=== PATIENT | female | born 1990 | race African-American/Black ===

== ENCOUNTER 2017-10-06 15:44 | Emergency (ER) | payer OTHER ==
[2017-10-06 16:00] VITALS: BP 118/68; PULSE 86; TEMP 99.2; BMI 30.5
--- NOTE | 2017-10-06 16:03 | PDOC ---
Rapid Medical Evaluation Time Seen by Provider: 10/06/17 15:57 Medical Evaluation: Allergies Allergy/AdvReac Type Severity Reaction Status Date / Time No Known Allergies Allergy Verified 06/15/14 23:33 10/06/17 15:58 The patient presents with a chief complaint of: Abdominal pain since yesterday. Pt. reports pain across the lower quadrants. Vomited today. Denies diarrhea, constipation. LMP 07/28/17. Reports irregular periods. I have performed a brief in-person evaluation of this patient; Pertinent physical exam findings TTP supra pubic region, LLQ, I have ordered the following: CBC, CMP, Pt/INR, Lipase, HIV testing, GC/ Chlamydia. UA, UC, urine preg The patient will proceed to the ED for further evaluation.
[2017-10-06 18:57] LABS: URINE APPEARANCE SLCLOUDY; URINE BILIRUBIN NEGATIVE (NEGATIVE); URINE BLOOD NEGATIVE (NEGATIVE); URINE COLOR YELLOW; URINE GLUCOSE (UA) NEGATIVE (NEGATIVE); URINE KETONE NEGATIVE (NEGATIVE); URINE NITRITE NEGATIVE (NEGATIVE); URINE PROTEIN NEGATIVE (NEGATIVE); URINE UROBILINOGEN 4.0 E.U/dl mg/dL (0.2-1.0)
[2017-10-06 19:01] LABS: BASO % 0.4 % (0-2.0); EOS % 0.2 % (0-4.5); HEMATOCRIT 38.9 % (32.4-45.2); HEMOGLOBIN 12.5 GM/dL (10.7-15.3); LYMPH % 33.1 % (8-40); MCH 25.8 pg (25.7-33.7); MCHC 32.2 g/dl (32.0-36.0); MEAN CELL VOLUME 80.1 fl (80-96); MEAN PLT VOLUME 11.1 fl (7.5-11.1); MONO % 6.6 % (3.8-10.2); NEUT % 59.7 % (42.8-82.8); PLATELET COUNT 187 K/MM3 (134-434); RBC 4.86 M/mm3 (3.60-5.2); WHITE BLOOD COUNT 7.7 K/mm3 (4.0-10.0)
[2017-10-06 19:23] LABS: URINE LEUK ESTERASE 3+ (NEGATIVE)
[2017-10-06 19:35] LABS: INR 1.03 (0.82-1.09); PROTHROMBIN TIME (PATIENT) 11.6 SEC (9.98-11.88)
[2017-10-06 20:00] LABS: ALK PHOS 84 U/L (45-117); ANION GAP 6 (8-16); BILIRUBIN,TOTAL 0.2 mg/dL (0.2-1.0); BLOOD UREA NITROGEN 11 mg/dL (7-18); CALCIUM 8.8 mg/dL (8.5-10.1); CHLORIDE 106 mmol/L (98-107); CO2 25 mmol/L (21-32); CREATININE 0.8 mg/dL (0.55-1.02); GLUCOSE,RANDOM 86 mg/dL (74-106); POTASSIUM 4.6 mmol/L (3.5-5.1); SGOT/AST 8 U/L (15-37); SGPT/ALT 15 U/L (12-78); SODIUM 137 mmol/L (136-145); TOT PROT 8.4 g/dl (6.4-8.2)
--- NOTE | 2017-10-06 21:27 | PDOC ---
History of Present Illness - General Chief Complaint: Pain Stated Complaint: ABDOMINAL PAIN Time Seen by Provider: 10/06/17 15:57 History Source: Patient Exam Limitations: No Limitations - History of Present Illness Travel History: No Initial Comments: 10/06/17 21:20 This is a 27-year-old woman with past medical history of hypertension who presents to the emergency department with suprapubic pain and pain and tenderness to the right upper quadrant. The pain started approximately 24 hours ago. Patient states the pain in the right upper quadrant has decreased to 2/10 since initial onset. Patient reports one episode of vomiting today. Patient states she gets irregular periods and her last initial period was 07/28/2017. Patient is 3 para 2 states she has an IUD in place. She denies any vaginal discharge or bleeding. She denies any dysuria or hematuria. Patient states she feels urinary urgency. Patient denies fevers, chills, chest pain, shortness of breath, nausea. 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 PMH: Hypertension- stopped taking medication 2 months ago because she ran out PSH: Denies Past History - Past Medical History Allergies/Adverse Reactions: Allergies Allergy/AdvReac Type Severity Reaction Status Date / Time SEAFOOD Allergy Uncoded 10/06/17 16:02 Home Medications: Ambulatory Orders Acetaminophen [Tylenol .Regular Strength -] 650 mg PO Q3H PRN #20 tablet Benzocaine [Americaine 20% [place] -] 1 spray TP PRN PRN #1 spraybtl 06/17/14 Ferrous Sulfate [Feosol] 325 mg PO BID #60 ud 06/17/14 Vitamins (Sjr) - 1 tab PO DAILY #30 tablet 06/17/14 Witch Mami 50% (Tucks) [Tucks Pads -] 1 pad TP PRN PRN #1 pad 06/17/14 Labetalol HCl [Normodyne -] 200 mg PO Q6H #0 tablet 06/19/14 Cephalexin Monohydrate [Keflex -] 500 mg PO BID #20 capsule 10/07/17 95/Iron Fum/Folic/Dha [ + Dha Combo Pack] 1 each PO DAILY #30 combo..pkg 10/07/17 Asthma: No Cancer: No Cardiac Disorders: No COPD: No Diabetes: No HTN: Yes (NO ON MEDS) Seizures: No Thyroid Disease: No - Suicide/Smoking/Psychosocial Hx Smoking History: Never smoked Have you smoked in the past 12 months: No Information on smoking cessation initiated: No Hx Alcohol Use: No Drug/Substance Use Hx: No Substance Use Type: None Hx Substance Use Treatment: No Review of Systems - Review of Systems Able to Perform ROS?: Yes Is the patient limited Bulgarian proficient: No Constitutional: No: Symptoms Reported HEENTM: No: Symptoms Reported Respiratory: No: Symptoms reported Cardiac (ROS): No: Symptoms Reported ABD/GI: Yes: See HPI : Yes: See HPI Musculoskeletal: No: Symptoms Reported Integumentary: No: Symptoms Reported Neurological: No: Symptoms reported *Physical Exam - Vital Signs Last Vital Signs Temp Pulse Resp BP Pulse Ox 99.2 F 86 18 118/68 100 10/06/17 15:58 10/06/17 15:58 10/06/17 15:58 10/06/17 15:58 10/06/17 15:58 - Physical Exam General Appearance: Yes: Appropriately Dressed. No: Apparent Distress HEENT: positive: Normal ENT Inspection Neck: positive: Trachea midline, Supple Respiratory/Chest: positive: Lungs Clear, Normal Breath Sounds. negative: Respiratory Distress, Accessory Muscle Use Cardiovascular: positive: Regular Rhythm, Regular Rate. negative: Edema, Murmur Gastrointestinal/Abdominal: positive: Normal Bowel Sounds, Tender (RUQ. (-) Oconnor's), Soft. negative: Organomegaly Musculoskeletal: positive: Normal Inspection. negative: CVA Tenderness Extremity: positive: Normal Inspection, Normal Range of Motion Integumentary: positive: Normal Color, Dry, Warm Neurologic: positive: Fully Oriented, Alert, Normal Mood/Affect, Normal Response , Motor Strength 5/5 ED Treatment Course - LABORATORY CBC & Chemistry Diagram: 10/06/17 18:50 10/06/17 18:50 - ADDITIONAL ORDERS Additional order review: Laboratory Results 10/06/17 10/06/17 10/06/17 18:50 18:50 18:50 PT with INR 11.60 INR 1.03 Sodium 137 Potassium 4.6 Chloride 106 Carbon Dioxide 25 Anion Gap 6 L BUN 11 Creatinine 0.8 Creat Clearance w eGFR > 60 Random Glucose 86 Calcium 8.8 Total Bilirubin 0.2 D AST 8 L D ALT 15 D Alkaline Phosphatase 84 Total Protein 8.4 H D Albumin 4.0 Lipase 210 Urine Color Urine Appearance Urine pH Ur Specific [place] Urine Protein Urine Glucose (UA) Urine Ketones Urine Blood Urine Nitrite Urine Bilirubin Urine Urobilinogen Ur Leukocyte Esterase Urine HCG, Qual 10/06/17 10/06/17 18:35 18:35 PT with INR INR Sodium Potassium Chloride Carbon Dioxide Anion Gap BUN Creatinine Creat Clearance w eGFR Random Glucose Calcium Total Bilirubin AST ALT Alkaline Phosphatase Total Protein Albumin Lipase Urine Color Yellow Urine Appearance Slcloudy Urine pH 6.0 Ur Specific [place] 1.028 Urine Protein Negative Urine Glucose (UA) Negative Urine Ketones Negative Urine Blood Negative Urine Nitrite Negative Urine Bilirubin Negative Urine Urobilinogen 4.0 e.u/dl H Ur Leukocyte Esterase 3+ H Urine HCG, Qual Positive 10/06/17 18:50 RBC 4.86 D MCV 80.1 MCHC 32.2 RDW 14.0 MPV 11.1 Neutrophils % 59.7 Lymphocytes % 33.1 Monocytes % 6.6 Eosinophils % 0.2 Basophils % 0.4 - RADIOLOGY Radiology Studies Ordered: Category Date Time Status ABDOMEN US -LIMITED [US] Stat Ultrasound 10/06/17 21:17 Ordered TRANSVAGINAL US PREG [US] Stat Ultrasound 10/06/17 21:17 Ordered Medical Decision Making - Medical Decision Making 10/06/17 21:23 A/P: This is a 27-year-old woman with past medical history of hypertension who presents to the emergency department with suprapubic pain and pain and tenderness to the right upper quadrant. The pain started approximately 24 hours ago. Patient states the pain in the right upper quadrant has decreased to 2/10 since initial onset. Patient reports one episode of vomiting today. Patient states she gets irregular periods and her last initial period was 07/28/2017. Patient is 3 para 2 states she has an IUD in place. She denies any vaginal discharge or bleeding. She denies any dysuria or hematuria. Patient states she feels urinary urgency. Patient denies fevers, chills, chest pain, shortness of breath, nausea. Lungs clear to auscultation bilaterally. Respirations even and unlabored. RRR. No murmur, rub or gallop appreciated. Abdomen with tenderness to palpation of the right upper quadrant. No Oconnor's elicited. Mild tenderness to palpation over suprapubic area. Differential diagnosis includes IUP versus ectopic, cholecystitis Given a laboratory testing that has been completed, I'll perform a right upper quadrant ultrasound to rule out cholecystitis. I will obtain a transvaginal ultrasound to evaluate for IUP versus ectopic. I'll add on a serum beta-hCG. Urinalysis reveals elevated urobilinogen and positive for leuk esterase. I'll treat the patient for UTI. 10/07/17 00:46 Ultrasound of the abdomen read by Allyson: contracted gallbladder with no evidence of cholelithiasis or acute cholecystitis.1. Prominent gallbladder wall measuring up to 5 mm may be subtle thickening secondary to under distention. 2. prominent common bile duct measuring 5 mm in diameter may be secondary to technical limitation no intrahepatic biliary ductal dilation. Please correlate clinically with serum markers. 3. hepatic steatosis. Transvaginal ultrasound with single IUP. Fundus discussed with patient will follow-up with her story analyst next week for further evaluation. I will treat the patient's urinary tract infection with Keflex 500 mg twice a day for 10 days. Over scrub the patient vitamins until she is able to follow-up with her story analyst. *DC/Admit/Observation/Transfer Diagnosis at time of Disposition: First trimester UTI (urinary tract infection) during Qualifiers: Trimester: first trimester Qualified Code(s): O23.41 - Unspecified infection of urinary tract in , first trimester - Discharge Dispostion Disposition: HOME Condition at time of disposition: Stable Admit: No - Prescriptions Prescriptions: Cephalexin Monohydrate [Keflex -] 500 mg PO BID #20 capsule 95/Iron Fum/Folic/Dha [ + Dha Combo Pack] 1 each PO DAILY #30 combo..pkg - Referrals Referrals: Ajay Jung [Primary Care Provider] - - Patient Instructions Additional Instructions: If you are experiencing any pain, Tylenol is the only safe medication to take during . Avoid medications such as Motrin, ibuprofen, Advil, Naprosyn, Aleve during . Make an appointment with your story analyst for visit. Take Keflex 500 mg twice a day for the next 10 days. Take all the medication. Take vitamins once a day until you can follow-up with your story analyst. Return to emergency department for severe abdominal pain, bleeding, vaginal discharge, or any other concerns. Thank you very much for choosing us to provide your emergent healthcare needs. - Post Discharge Activity
[2017-10-07 00:09] LABS: EPI CELLS FEW /HPF (FEW); URINE BACTERIA RARE /hpf (NONE SEEN); URINE MUCUS FEW
== END 2017-10-07 01:15 | disposition home or self-care (01) ==
LOC: JER 15:44
DX: O26.891 Other specified pregnancy related conditions, first trimester (principal); O23.31 Infections of other parts of urinary tract in pregnancy, first trimester; Z3A.01 Less than 8 weeks gestation of pregnancy
CPT/HCPCS: 36415; 76705-TC; 76817-TC; 80053; 81003; 81015; 83690; 84702; 84703; 85025; 85610; 86593; 87086; 87389; 87491; 87591; 99282-25

== ENCOUNTER 2018-08-24 16:56 | Emergency (ER) | payer OTHER ==
[2018-08-24 17:01] VITALS: BP 141/75; PULSE 82; TEMP 98.2; BMI 37.6
--- NOTE | 2018-08-24 17:07 | PDOC ---
Rapid Medical Evaluation Chief Complaint: Chest Pain Time Seen by Provider: 08/24/18 17:05 Medical Evaluation: Allergies Allergy/AdvReac Type Severity Reaction Status Date / Time SEAFOOD Allergy Uncoded 08/24/18 16:57 Vital Signs Temp Pulse Resp BP Pulse Ox 98.2 F 82 16 141/75 100 08/24/18 16:57 08/24/18 16:57 08/24/18 16:57 08/24/18 16:57 08/24/18 16:57 08/24/18 17:10 I have performed a brief in person evaluation of this patient. The patient presents with chief complaint of : chest pain radiating down abdomen and lower back x 1.5wks. had 2 episodes of vomiting few days ago. Denies fever, chills, palpitations, SOB, dizziness Pertinent PE findings: A&O x 3. heart RRR. lungs CTAB. EKG shows NSR I have ordered the following: CBC, cmb, hepatic penal. cardiac profile The patient will proceed to the ER for further evaluation. Discharge Disposition - Diagnosis Chest discomfort - Referrals - Patient Instructions - Post Discharge Activity
--- NOTE | 2018-08-24 18:08 | PDOC ---
Attending Attestation - HPI HPI: 08/24/18 19:55 The patient is a 28 year old female with a significant past medical history of HTN presents to the ED for abdominal pain for over a week. Patient reports suprapubic intermittent cramping pain radiating to her LLQ and RLQ, no alleviating or aggravating factors. She also reports two episodes of nonbloody villa colored vomiting on tuesday (08/21). Patient also complains of sharp intermittent substernal chest pain lasting 3 minutes at a time, occurring 4 times a day for one and a half week. She also complained of lower back pain. Denies fever, chills, dysuria, hematuria, flank pain, diarrhea, constipation, blood in stool, cough, shortness of breath, vaginal bleeding, vaginal discharge. LMP: 07/06/18 Social hx: Patient is sexually active with one partner. Denies condom use, denies OCP use. - Physicial Exam PE: 08/24/18 19:55 Constitutional: Awake, alert, oriented. No acute distress. Head: Normocephalic. Atraumatic Eyes: PERRL. EOMI. Conjunctivae are not pale. ENT: Mucous membranes are moist and intact. Posterior pharynx without exudates or erythema. Uvula midline. Neck: Supple. Full ROM. No lymphadenopathy. Cardiovascular: Regular rate. Regular rhythm. S1, S2 regular. Distal pulses are 2+ and symmetric. Pulmonary/Chest: No evidence of respiratory distress. Clear to auscultation bilaterally No wheezing, rales or rhonchi. Abdominal: Soft and non-distended. There is no tenderness. No rebound, guarding or rigidity. No organomegaly. No palpable masses. Good bowel sounds. Pelvic: + Diarrhea during pelvic exam. Brownish greenish discharge. Mild superpubic tenderness. No adnexal tenderness. No CMT. Back: No CVA tenderness. Musculoskeletal: No edema. No cyanosis. No clubbing. Full range of motion in all extremities. Nocalf tenderness. Radial/pedal pulses are intact and 2+ bilaterally Skin: Skin is warm and dry. No petechiae. No purpura. Neurological: Alert and oriented to person, place, and time. Cranial nerves II -XII are grossly intact. Normal speech. Strength is grossly symmetric. No sensory deficits. Psychiatric: Good eye contact. Normal interaction, affect and behavior. <Agrawal,Andrys - Last Filed: 08/24/18 19:55> - Resident Resident Name: Shanice Millard - ED Attending Attestation I have performed the following: I have examined & evaluated the patient, The case was reviewed & discussed with the resident, I agree w/resident's findings & plan, Exceptions are as noted - Medical Decision Making 08/24/18 18:08 I, Dr. Penelope Reyna, , attest that this document has been prepared under my direction and personally reviewed by me in its entirety. I further attest, that it accurately reflects all work, treatment, procedures and medical decision -making performed by me. 08/24/18 19:59 a/p: 28yo at unknown weeks gestation with lower pelvic cramping, small amount of discharge, and atypical chest pain -will send labs, beta hcg, ua, urine for gc/chl -will obtain tvus -most likely also with UTI -will monitor and reassess -pt is nontoxic in appearance 08/24/18 20:06 pt with +preg tvus ordered 08/24/18 21:41 beta >3000 pending ultrasound O+ on type and screen <Penelope Reyna - Last Filed: 08/24/18 21:43> Heart Score/ECG Review - ECG Intrepretation Comment:: 08/24/18 20:06 sinus at 70, nl axis, nl interval, no acute st/t wave findings <Penelope Reyna - Last Filed: 08/24/18 21:43> Attestations - Attestations 08/24/18 19:55 Documentation prepared by Gordon Agrawal, acting as medical records custodian for Penelope Reyna DO <Gordon Agrawal - Last Filed: 08/24/18 19:55>
--- NOTE | 2018-08-24 18:19 | PDOC ---
History of Present Illness - General Chief Complaint: Chest Pain Stated Complaint: CHEST PAIN Time Seen by Provider: 08/24/18 17:05 History Source: Patient Exam Limitations: No Limitations - History of Present Illness Initial Comments: 08/24/18 18:14 28 year old female with PMH HTN presented to ED for abdominal painx1.5 weeks. She stated her pain is located to her suprapubic area, intermittent, crampy, radiating to her LLQ and RLQ, no alleviating or aggravating factors. She stated her LMP was 07/06/18, she admitted to being sexually active with one partner, denied condom use, denied OCP use. She stated she vomited twice tuesday, villa colored, denied blood. She denied fever, chills, dysuria, hematuria, flank pain , diarrhea, constipation, blood in stool, cough, shortness of breath, vaginal bleeding, vaginal discharge. She admitted to intermittent chest pain x1.5 weeks , sharp, lasting 3 minutes at a time, occurring 4 times a day, located substernally, no alleviating or aggravating factors. She also complained of low back pain. Allergies: NKDA Past History - Past Medical History Allergies/Adverse Reactions: Allergies Allergy/AdvReac Type Severity Reaction Status Date / Time Fish Containing Products Allergy Verified 08/24/18 18:29 SEAFOOD Allergy Uncoded 08/24/18 16:57 Home Medications: Ambulatory Orders Acetaminophen [Tylenol -] 500 mg PO Q4H PRN 08/24/18 Cephalexin [Keflex] 500 mg PO BID #14 capsule 08/24/18 Asthma: No Cancer: No Cardiac Disorders: No COPD: No Diabetes: No HTN: Yes (NO ON MEDS) Seizures: No Thyroid Disease: No - Immunization History Immunization Up to Date: Yes - Suicide/Smoking/Psychosocial Hx Smoking History: Never smoked Have you smoked in the past 12 months: No Information on smoking cessation initiated: No Hx Alcohol Use: No Drug/Substance Use Hx: No Substance Use Type: None Hx Substance Use Treatment: No Review of Systems - Review of Systems Able to Perform ROS?: Yes Comments:: 08/24/18 18:19 General: denied fever, chills, generalized weakness. HEENT: denied sore throat, rhinorrhea, ear pain. Heart: admitted to chest pain. denied palpitations, shortness of breath, lower extremity swelling. Respiratory: denied shortness of breath, cough. Abdomen: admitted to abdominal pain, nausea, vomiting. denied diarrhea. : denied vaginal bleeding, vaginal discharge, dysuria, increased urinary frequency, hematuria. Back: admitted to back pain. Musculoskeletal: denied joint pain, muscle pain. Neurological: denied headache, dizziness, numbness, tingling. Skin: denied rash, laceration, abrasion. *Physical Exam - Vital Signs Last Vital Signs Temp Pulse Resp BP Pulse Ox 98.2 F 82 16 141/75 100 08/24/18 16:57 08/24/18 16:57 08/24/18 16:57 08/24/18 16:57 08/24/18 16:57 - Physical Exam Comments: 08/24/18 18:19 Constitutional: well developed, well nourished, appearing stated age. HEENT: head NAAT. EOMI. PEERLA. Neck: supple. full ROM. Heart: regular rhythm. no murmurs. Lungs: clear to auscultation bilaterally. Abdomen: soft, flat, tenderness to suprapubic area with palpation. no guarding. no rebound. Extremities: peripheral pulses intact and equal. no lower extremity edema. Back: no CVA tenderness bilaterally. Neurological: CN2-12 grossly intact. moves all four extremities. Psych: awake, alert, orientedx3, follows commands, answers questions appropriately. 08/24/18 19:50 Pelvic: normal external genitalia. brown stool noted to perineum. cervical os closed. no blood in vaginal vault. no CMT. no adnexal tenderness. Moderate Sedation - Procedure Monitoring Vital Signs: Procedure Monitoring Vital Signs Temperature 98.2 F 08/24/18 16:57 Pulse Rate 82 08/24/18 16:57 Respiratory Rate 16 08/24/18 16:57 Blood Pressure 141/75 08/24/18 16:57 O2 Sat by Pulse Oximetry (%) 100 08/24/18 16:57 ED Treatment Course - LABORATORY CBC & Chemistry Diagram: 08/24/18 18:20 08/24/18 19:13 Medical Decision Making - Medical Decision Making 08/24/18 18:21 28 year old female with PMH HTN presented to ED for suprapubic cramping and intermittent sharp chest pain associated with low back pain. Initial Vital Signs Temp Pulse Resp BP Pulse Ox 98.2 F 82 16 141/75 100 08/24/18 16:57 08/24/18 16:57 08/24/18 16:57 08/24/18 16:57 08/24/18 16:57 Afebrile. No tachycardia. No tachypnea. Mild hypertension. No hypoxia on room air. EKG: rate 70, regular rhythm, normal axis, normal intervals, no acute ST changes. CBC WBC 8.9 K/mm3 (4.0-10.0) 08/24/18 18:20 RBC 4.47 M/mm3 (3.60-5.2) 08/24/18 18:20 Hgb 12.1 GM/dL (10.7-15.3) 08/24/18 18:20 Hct 35.9 % (32.4-45.2) 08/24/18 18:20 MCV 80.3 fl (80-96) 08/24/18 18:20 MCH 27.1 pg (25.7-33.7) 08/24/18 18:20 MCHC 33.8 g/dl (32.0-36.0) 08/24/18 18:20 RDW 14.3 % (11.6-15.6) 08/24/18 18:20 Plt Count 178 K/MM3 (134-434) 08/24/18 18:20 MPV 11.8 fl (7.5-11.1) H 08/24/18 18:20 Absolute Neuts (auto) 5.0 K/mm3 (1.5-8.0) 08/24/18 18:20 Neutrophils % 56.5 % (42.8-82.8) 08/24/18 18:20 Lymphocytes % 35.6 % (8-40) 08/24/18 18:20 Monocytes % 6.8 % (3.8-10.2) 08/24/18 18:20 Eosinophils % 0.5 % (0-4.5) D 08/24/18 18:20 Basophils % 0.6 % (0-2.0) 08/24/18 18:20 Nucleated RBC % 0 % (0-0) 08/24/18 18:20 No leukocytosis. No anemia. Urine Test Results Urine Color Dkyellow 08/24/18 18:30 Urine Appearance Cloudy 08/24/18 18:30 Urine pH 6.0 (5.0-8.0) 08/24/18 18:30 Ur Specific [place] 1.030 (1.010-1.035) 08/24/18 18:30 Urine Protein 1+ (NEGATIVE) H 08/24/18 18:30 Urine Glucose (UA) Negative (NEGATIVE) 08/24/18 18:30 Urine Ketones 1+ (NEGATIVE) H 08/24/18 18:30 Urine Blood Negative (NEGATIVE) 08/24/18 18:30 Urine Nitrite Negative (NEGATIVE) 08/24/18 18:30 Urine Bilirubin Negative (<2.0 mg/dL) 08/24/18 18:30 Ur Leukocyte Esterase 3+ (NEGATIVE) H 08/24/18 18:30 Ur Epithelial Cells Many /HPF (FEW) 08/24/18 18:30 Urine Mucus Many 08/24/18 18:30 WBC>5 Evidence of UTI. Urine test positive. - Pending beta quant, T/S - Pending TVUS - Macrobid ordered 08/24/18 20:51 CMP Sodium 137 mmol/L (136-145) 08/24/18 19:13 Potassium 4.0 mmol/L (3.5-5.1) 08/24/18 19:13 Chloride 108 mmol/L (98-107) H 08/24/18 19:13 Carbon Dioxide 19 mmol/L (21-32) L 08/24/18 19:13 Anion Gap 11 MMOL/L (8-16) 08/24/18 19:13 BUN 9 mg/dL (7-18) 08/24/18 19:13 Creatinine 0.8 mg/dL (0.55-1.3) 08/24/18 19:13 Creat Clearance w eGFR > 60 (>60) 08/24/18 19:13 Random Glucose 77 mg/dL (74-106) 08/24/18 19:13 Calcium 8.4 mg/dL (8.5-10.1) L 08/24/18 19:13 Total Bilirubin 0.4 mg/dL (0.2-1) 08/24/18 19:13 AST 11 U/L (15-37) L 08/24/18 19:13 ALT 19 U/L (13-61) 08/24/18 19:13 Alkaline Phosphatase 69 U/L (45-117) 08/24/18 19:13 Creatine Kinase 227 IU/L (26-192) H 08/24/18 19:13 Creatine Kinase Index 0.4 % (0.0-5.0) 08/24/18 19:13 CK-MB (CK-2) < 1.0 ng/mL (0.5-3.6) 08/24/18 19:13 Troponin I < 0.02 ng/ml (0.00-0.05) 08/24/18 19:13 Total Protein 7.6 g/dl (6.4-8.2) 08/24/18 19:13 Albumin 3.8 g/dl (3.4-5.0) 08/24/18 19:13 Total Amylase 56 U/L (25-115) 08/24/18 19:13 Lipase 139 U/L (73-393) 08/24/18 19:13 Beta HCG, Quant 3743.7 mIU/ml 08/24/18 19:13 No electrolyte abnormalities. No DEREK. No LFT abnormalities. Normal lipase. Chest pain unlikely to be cardiac in origin, normal EKG, normal troponin, normal CKMB, normal vital signs. Pt has asymptomatic urinary tract infection in the setting of , will treat. 08/24/18 21:45 Blood type: O+ 08/24/18 21:59 TVUS report: intrauterine gestational sac is seen containing yolk sac, no embryonic pole. approximate gestational age 5 weeks 1 day. Pt informed to return to ED in 48 hours for beta repeat. Pt infomed to follow up with her OB by Tuesday. Pt to be discharged with Keflex prescription for UTI. *DC/Admit/Observation/Transfer Diagnosis at time of Disposition: Chest discomfort, - Discharge Dispostion Disposition: HOME Condition at time of disposition: Stable Decision to Admit order: No - Prescriptions Prescriptions: Cephalexin [Keflex] 500 mg PO BID #14 capsule - Referrals Referrals: Aissatou Dahl MD [Staff Physician] - - Patient Instructions Additional Instructions: You were seen today for abdominal pain and chest pain. Your lab work indicated that you are and have a urinary tract infection. I have sent a prescription to your pharmacy for an antibiotic, take as advised on label. Do not miss any doses. You will be called to make an appointment with a primary care doctor, make an appointment for as soon as available. Follow up with your OBGYN in the next 2-3 days, call their office tomorrow morning and make an appointment for the soonest available. Take vitamins over the counter. Take Tylenol over the counter for your pain. No heavy lifting or vaginal penetration until you are seen and evaluated by your OBGYN. Return to the Emergency Department for vaginal bleeding, increasing pain, chest pain, shortness of breath, palpitations, lightheadedness like you may pass out, or any other new, worsening or concerning symptoms. - Post Discharge Activity
[2018-08-24] MEDS ORDERED: MAG HYDROX/AL HYDROX/SIMETH 30 ML UNIT-DOSE CUP PO ONE (18:30)
[2018-08-24] MEDS ORDERED: ACETAMINOPHEN 325 MG TABLET (FP) PO ONE (18:30)
[2018-08-24 18:45] LABS: HCG,QUALITATIVE URINE Positive
[2018-08-24] MEDS ORDERED: MAG HYDROX/AL HYDROX/SIMETH 30 ML UNIT-DOSE CUP ONE (18:45)
[2018-08-24] MEDS ORDERED: ACETAMINOPHEN 325 MG TABLET (FP) ONE (18:45)
[2018-08-24 18:47] LABS: BASO % 0.6 % (0-2.0); EOS % 0.5 % (0-4.5); HEMATOCRIT 35.9 % (32.4-45.2); HEMOGLOBIN 12.1 GM/dL (10.7-15.3); LYMPH % 35.6 % (8-40); MCH 27.1 pg (25.7-33.7); MCHC 33.8 g/dl (32.0-36.0); MEAN CELL VOLUME 80.3 fl (80-96); MEAN PLT VOLUME 11.8 fl (7.5-11.1); MONO % 6.8 % (3.8-10.2); NEUT % 56.5 % (42.8-82.8); PLATELET COUNT 178 K/MM3 (134-434); RBC 4.47 M/mm3 (3.60-5.2); RDW 14.3 % (11.6-15.6); WHITE BLOOD COUNT 8.9 K/mm3 (4.0-10.0)
[2018-08-24 18:48] LABS: URINE APPEARANCE CLOUDY; URINE BILIRUBIN NEGATIVE (<2.0 mg/dL); URINE COLOR DKYELLOW; URINE GLUCOSE (UA) NEGATIVE (NEGATIVE); URINE KETONE 1+ (NEGATIVE); URINE LEUK ESTERASE 3+ (NEGATIVE); URINE NITRITE NEGATIVE (NEGATIVE); URINE PROTEIN 1+ (NEGATIVE); URINE UROBILINOGEN 4.0 E.U/dl mg/dL (0.2-1.0)
[2018-08-24 19:03] LABS: EPI CELLS MANY /HPF (FEW); URINE MUCUS MANY
[2018-08-24] MEDS ORDERED: NITROFURANTOIN MACROCRYSTAL 50 MG CAPSULE (FP) PO SCH (19:30)
[2018-08-24 20:30] LABS: ALBUMIN 3.8 g/dl (3.4-5.0); ALK PHOS 69 U/L (45-117); AMYLASE 56 U/L (25-115); ANION GAP 11 MMOL/L (8-16); BILIRUBIN,TOTAL 0.4 mg/dL (0.2-1); BLOOD UREA NITROGEN 9 mg/dL (7-18); CALCIUM 8.4 mg/dL (8.5-10.1); CHLORIDE 108 mmol/L (98-107); CO2 19 mmol/L (21-32); CREATININE 0.8 mg/dL (0.55-1.3); GLUCOSE,RANDOM 77 mg/dL (74-106); LIPASE 139 U/L (73-393); SGOT/AST 11 U/L (15-37); SGPT/ALT 19 U/L (13-61); SODIUM 137 mmol/L (136-145); TOT PROT 7.6 g/dl (6.4-8.2)
[2018-08-24] MEDS ORDERED: NITROFURANTOIN MACROCRYSTAL 50 MG CAPSULE (FP) ONE (21:17)
--- NOTE | 2018-08-26 17:25 | EKG ---
Test Reason : Blood Pressure : / mmHG Vent. Rate : 070 BPM Atrial Rate : 070 BPM P-R Int : 152 ms QRS Dur : 092 ms QT Int : 388 ms P-R-T Axes : 014 -10 031 degrees QTc Int : 419 ms NORMAL SINUS RHYTHM NORMAL ECG WHEN COMPARED WITH ECG OF 16-AUG-2011 08:53, NO SIGNIFICANT CHANGE WAS FOUND Confirmed by MD TIFF, MIGDALIA ([id number]) on 08/26/2018 5:25:13 PM Referred By: Confirmed By:MIGDALIA MATTHEW MD
== END 2018-08-24 22:34 | disposition home or self-care (01) ==
LOC: JER 16:56
DX: O23.31 Infections of other parts of urinary tract in pregnancy, first trimester (principal); O16.5 Unspecified maternal hypertension, complicating the puerperium; Z3A.01 Less than 8 weeks gestation of pregnancy
CPT/HCPCS: 36415; 76817-TC; 80053; 81003; 81015; 82150; 82550; 82553; 83690; 84484; 84702; 84703; 85025; 86850; 86900; 86901; 87491; 87591; 93005; 93010; 99283-25

== ENCOUNTER 2018-08-26 12:40 | Emergency (ER) | payer OTHER ==
[2018-08-26 12:46] VITALS: BP 122/71; PULSE 94; TEMP 98.7; BMI 37.6
--- NOTE | 2018-08-26 13:07 | PDOC ---
History of Present Illness - General Chief Complaint: Revisit, Lab Variance Stated Complaint: FOLLOW UP/ULTRASOUND Time Seen by Provider: 08/26/18 13:06 History Source: Patient Exam Limitations: No Limitations - History of Present Illness Travel History: No Initial Comments: 08/26/18 13:22 28 year old female , 5 weeks presents to ed for repeat bhcg. Patient has history of gestation HTN, denies spotting or cramping today. Timing/Duration: reports: other (2 days ago) Quality: reports: mild Abdominal Pain Onset Location: reports: suprapubic Pain Radiation: reports: no radiation Activities at Onset: reports: no specific activity Treatment Prior to Arrive: improves with: other (rest) Aggravating Factors: improves with: None Alleviating Factors: improves with: None Past History - Travel Traveled outside of the country in the last 30 days: No - Past Medical History Allergies/Adverse Reactions: Allergies Allergy/AdvReac Type Severity Reaction Status Date / Time Fish Containing Products Allergy Verified 08/26/18 12:44 SEAFOOD Allergy Uncoded 08/26/18 12:44 Home Medications: Ambulatory Orders NK [No Known Home Medication] 08/26/18 Asthma: No Cancer: No Cardiac Disorders: No COPD: No Diabetes: No HTN: Yes (NO ON MEDS) Seizures: No Thyroid Disease: No - Immunization History Immunization Up to Date: Yes - Suicide/Smoking/Psychosocial Hx Smoking History: Never smoked Have you smoked in the past 12 months: No Hx Alcohol Use: No Drug/Substance Use Hx: No Substance Use Type: None Hx Substance Use Treatment: No Review of Systems - Review of Systems Able to Perform ROS?: Yes Is the patient limited Japanese proficient: No Constitutional: No: Chills, Fever, Weakness HEENTM: No: Cataracts, Ear Discharge, Nose Congestion, Tinnitus, Throat Pain, Mouth Pain, Difficulty Swallowing Respiratory: Yes: Cough. No: Shortness of Breath, Wheezing, Productive cough Cardiac (ROS): No: Chest Pain, Lightheadedness ABD/GI: Yes: Nausea, Abdominal cramping Musculoskeletal: No: Back Pain, Muscle Weakness Integumentary: No: Bruising, Dryness, Erythema Neurological: No: Headache, Numbness, Weakness, Dizziness Psychiatric: No: Stressors *Physical Exam - Vital Signs Last Vital Signs Temp Pulse Resp BP Pulse Ox 98.7 F 94 H 17 122/71 98 08/26/18 12:41 08/26/18 12:41 08/26/18 12:41 08/26/18 12:41 08/26/18 12:41 - Physical Exam General Appearance: Yes: Nourished, Appropriately Dressed. No: Apparent Distress HEENT: positive: T[place], TMs Normal, Pharynx Normal Neck: positive: Supple. negative: Lymphadenopathy (R), Lymphadenopathy (L) Respiratory/Chest: positive: Lungs Clear, Normal Breath Sounds Cardiovascular: positive: Regular Rhythm, Regular Rate, S1, S2 Musculoskeletal: negative: CVA Tenderness Moderate Sedation - Procedure Monitoring Vital Signs: Procedure Monitoring Vital Signs Temperature 98.7 F 08/26/18 12:41 Pulse Rate 94 H 08/26/18 12:41 Respiratory Rate 17 08/26/18 12:41 Blood Pressure 122/71 08/26/18 12:41 O2 Sat by Pulse Oximetry (%) 98 08/26/18 12:41 Medical Decision Making - Medical Decision Making 08/26/18 13:32 28 year old female , 5 weeks here for repeat bhcg, complaining of cramping but no vaginal bleed. 08/26/18 14:14 bhcg 6303.5 and 08/24/18 3743.5 pt d/c and instructed to schedule appointment and return for bleeding and worsening of pain *DC/Admit/Observation/Transfer Diagnosis at time of Disposition: Qualifiers: Weeks of gestation: less than 8 weeks Qualified Code(s): Z3A.01 - Less than 8 weeks gestation of - Discharge Dispostion Disposition: HOME Condition at time of disposition: Good Decision to Admit order: No - Referrals Referrals: Ginger Chaudhry MD [Staff Physician] - - Patient Instructions Printed Discharge Instructions: Ultrasound Exams During , Medications and Additional Instructions: Please schedule appointments start taking vitamins Return to ed for bleeding and worsening of pain - Post Discharge Activity Forms/Work/School Notes: Back to Work
== END 2018-08-26 14:21 | disposition home or self-care (01) ==
LOC: JER 12:40 → JERFT 12:40
DX: O26.891 Other specified pregnancy related conditions, first trimester (principal); Z32.01 Encounter for pregnancy test, result positive; Z3A.01 Less than 8 weeks gestation of pregnancy
CPT/HCPCS: 36415; 84702; 99281-25

== ENCOUNTER 2021-01-07 20:45 | Inpatient (IN) | payer OTHER ==
[2021-01-07] MEDS ORDERED: ELECTROLYTE-148 SOLN 1,000 ML IV SCH (23:00)
[2021-01-07 23:30] LABS: BASO % 0.1 % (0-2.0); EOS % 0.3 % (0-4.5); HEMATOCRIT 33.7 % (32.4-45.2); HEMOGLOBIN 11.1 GM/dL (10.7-15.3); LYMPH % 23.1 % (8-40); MCH 26.8 pg (25.7-33.7); MCHC 32.9 g/dl (32.0-36.0); MEAN CELL VOLUME 81.5 fl (80-96); MONO % 8.8 % (3.8-10.2); NEUT % 67.7 % (42.8-82.8); PLATELET COUNT 140 K/MM3 (134-434); RBC 4.13 M/mm3 (3.60-5.2); WHITE BLOOD COUNT 10.3 K/mm3 (4.0-10.0)
[2021-01-07] MEDS ORDERED: CEFAZOLIN 2 GM in DEXTROSE 5%-WATER - 50 ML IVPB ONE (23:30)
[2021-01-07] MEDS ORDERED: CEFAZOLIN 2 GM/D5W 2 GM/50 ML ML IVPB ONE (23:33)
[2021-01-07 23:37] LABS: INR 0.94 (0.83-1.09); PROTHROMBIN TIME (PATIENT) 11.6 SEC (9.7-13.0)
[2021-01-07 23:40] LABS: ACTIVATED PTT 23.2 SECONDS (25.2-36.5)
[2021-01-07 23:50] LABS: BLOOD UREA NITROGEN 4.6 mg/dL (7-18); CALCIUM 9.1 mg/dL (8.5-10.1)
[2021-01-07 23:53] LABS: CREATININE 0.6 mg/dL (0.55-1.3)
[2021-01-08 00:03] VITALS: BMI 37.1
[2021-01-08 00:48] LABS: HIV INTERPRETATION NEGATIVE (NEGATIVE)
[2021-01-08] MEDS ORDERED: OXYTOCIN 30 UNITS in 0.9% NS 30 UNIT/500 ML INFUS.BAG IVPB SCH (04:00)
[2021-01-08] MEDS ORDERED: OXYTOCIN 30 UNITS in 0.9% NS 30 UNIT/500 ML INFUS.BAG IVPB ONE (04:27)
[2021-01-08] MEDS ORDERED: FENTANYL/BUPIVACAINE/NS/PF - PCEA - 50 ML DISP.SYRIN EP ONE (04:50)
[2021-01-08] MEDS ORDERED: PCA PUMP NR ONE ×2 (04:51→08:55)
[2021-01-08] MEDS ORDERED: BUPIVACAINE HCL/PF 0.25% (2.5MG/ML) 10 ML VIAL ONE (05:05)
[2021-01-08] MEDS ORDERED: NALOXONE HCL 0.4 MG/ML VIAL IVPUSH PRN (05:36)
[2021-01-08] MEDS ORDERED: FENTANYL/BUPIVACAINE/NS/PF - PCEA - 50 ML DISP.SYRIN EP SCH (05:45)
[2021-01-08] MEDS ORDERED: CEFAZOLIN 1 GM/D5W 1 GM/50 ML BAG ONE (07:43)
[2021-01-08] MEDS ORDERED: CEFAZOLIN 1 GM in DEXTROSE 5%-WATER - 50 ML IVPB SCH (08:00)
[2021-01-08] MEDS ORDERED: OXYTOCIN 20 UNITS in 0.9% NS 20 UNIT/1,000 ML INFUS.BAG IV ONE (08:55)
[2021-01-08] MEDS ORDERED: WITCH HAZEL 50% (TUCKS) 40 PAD/JAR PAD TP PRN (09:38)
[2021-01-08] MEDS ORDERED: METHYLERGONOVINE MALEATE 0.2 MG/1 ML AMP IM PRN (09:38)
[2021-01-08] MEDS ORDERED: BENZOCAINE 20% 57 GM BOTTLE TP PRN (09:38)
[2021-01-08] MEDS ORDERED: oxyCODONE HCL 5 MG TABLET PO PRN (09:38)
[2021-01-08] MEDS ORDERED: BISACODYL 10 MG SUPP.RECT RC PRN (09:38)
[2021-01-08] MEDS ORDERED: BENZOCAINE 28 GM HEMORRHOIDAL OINTMENT TP PRN (09:38)
[2021-01-08] MEDS ORDERED: OXYTOCIN 20 UNITS in 0.9% NS 20 UNIT/1,000 ML INFUS.BAG IV SCH (09:45)
[2021-01-08] MEDS ORDERED: ACETAMINOPHEN 325 MG TABLET (FP) ONE (10:25)
[2021-01-08] MEDS ORDERED: IBUPROFEN 600 MG TABLET (FP) PO ONE (10:25)
[2021-01-08] MEDS: ACETAMINOPHEN 325 MG TABLET (FP) PO PRN ×2 (10:28→17:34)
[2021-01-08] MEDS: IBUPROFEN 600 MG TABLET (FP) PO PRN ×2 (10:28→17:33)
[2021-01-08 10:30] LABS: CORD BASE EXCESS -5.7 mmol/L (0-2); CORD HCO3 23.1 mmHg (20-29); CORD pH 7.203 (7.14-7.44)
[2021-01-08 10:32] LABS: CORD BASE EXCESS -5.3 mmol/L (0-2); CORD HCO3 21.4 mmHg (20-29); CORD PCO2 46.3 mmHg (30-78); CORD pH 7.283 (7.14-7.44)
[2021-01-08] MEDS: PRENATAL VITAMINS W/ FOLIC ACID TABLET (FP) PO SCH (11:21)
[2021-01-08] MEDS ORDERED: DIPHTH,PERTUSS(ACELL),TET 0.5 ML DISP.SYRIN IM ONE (14:01)
[2021-01-08] MEDS: FERROUS SO4 325 MG TABLET (FP) PO SCH (17:08)
[2021-01-09] MEDS: ACETAMINOPHEN 325 MG TABLET (FP) PO PRN ×2 (05:18→23:21)
[2021-01-09] MEDS: IBUPROFEN 600 MG TABLET (FP) PO PRN ×2 (05:18→23:21)
[2021-01-09 07:51] LABS: BASO % 0.1 % (0-2.0); EOS % 0.6 % (0-4.5); HEMATOCRIT 28.8 % (32.4-45.2); HEMOGLOBIN 9.6 GM/dL (10.7-15.3); MCH 27.2 pg (25.7-33.7); MCHC 33.4 g/dl (32.0-36.0); MEAN CELL VOLUME 81.5 fl (80-96); MEAN PLT VOLUME 11.8 fl (7.5-11.1); MONO % 7.6 % (3.8-10.2); NEUT % 62.7 % (42.8-82.8); PLATELET COUNT 120 K/MM3 (134-434); RBC 3.53 M/mm3 (3.60-5.2); RDW 13.8 % (11.6-15.6); WHITE BLOOD COUNT 11.9 K/mm3 (4.0-10.0)
[2021-01-09] MEDS: FERROUS SO4 325 MG TABLET (FP) PO SCH ×2 (09:53→17:28)
[2021-01-09] MEDS: PRENATAL VITAMINS W/ FOLIC ACID TABLET (FP) PO SCH (09:54)
[2021-01-09] MEDS ORDERED: BENZOCAINE 28 GM HEMORRHOIDAL OINTMENT TP PRN (17:17)
[2021-01-09] MEDS ORDERED: BENZOCAINE 20% 57 GM BOTTLE TP PRN (17:17)
[2021-01-09] MEDS ORDERED: WITCH HAZEL 50% (TUCKS) 40 PAD/JAR PAD TP PRN (17:17)
[2021-01-09] MEDS ORDERED: BISACODYL 10 MG SUPP.RECT RC PRN (17:17)
[2021-01-09] MEDS ORDERED: METHYLERGONOVINE MALEATE 0.2 MG/1 ML AMP IM PRN (17:17)
[2021-01-09] MEDS ORDERED: SENNOSIDES/DOCUSATE COMBO (SENNA PLUS) TABLET (UD) PO PRN (22:00)
[2021-01-10] MEDS: FERROUS SO4 325 MG TABLET (FP) PO SCH (09:29)
[2021-01-10] MEDS ORDERED: PRENATAL VITAMINS W/ FOLIC ACID TABLET (FP) PO SCH (10:00)
[2021-01-10 10:34] VITALS: BP 124/80; PULSE 75; TEMP 97.6
[2021-01-10] MEDS: IBUPROFEN 600 MG TABLET (FP) PO PRN (12:05)
[2021-01-10] MEDS: ACETAMINOPHEN 325 MG TABLET (FP) PO PRN (12:05)
[2021-01-10] MEDS ORDERED: SENNOSIDES/DOCUSATE COMBO (SENNA PLUS) TABLET (UD) PO PRN (22:00)
== END 2021-01-10 12:25 | disposition home or self-care (01) | DRG 560 ==
LOC: JDEL 20:45 → JLDR 21:15 → J3W 01-08 11:30
PROVIDERS: ADMIT Obstetrics & Gynecology; ATTEND Obstetrics & Gynecology
PROC: 10E0XZZ Delivery of Products of Conception, External Approach (ICD-10-PCS; principal; 2021-01-08)
DX: O42.12 Full-term premature rupture of membranes, onset of labor more than 24 hours following rupture (principal); Z3A.37 37 weeks gestation of pregnancy; Z37.0 Single live birth; Z88.0 Allergy status to penicillin; R82.71 Bacteriuria
CPT/HCPCS: 36415; 36600; 59409; 80048; 82803; 85025; 85610; 85730; 86780; 86850; 86900; 86901; 87389; 90715; C9803; U0003; U0005